=== PATIENT | male | born 1945 | race African-American/Black ===

== ENCOUNTER 2019-06-27 09:52 | Day surgery (SDC) | payer OTHER ==
[2019-06-27 10:46] VITALS: BMI 35.0
[2019-06-27] MEDS ORDERED: LIDOCAINE HCL/PF 2% SDV 5ML VIAL ONE (11:39)
[2019-06-27] MEDS ORDERED: MIDAZOLAM HCL 2 MG/2 ML SINGLE DOSE VIAL ONE (11:39)
[2019-06-27] MEDS ORDERED: ONDANSETRON 4 MG/2 ML VIAL ONE ×2 (11:39→13:47)
[2019-06-27] MEDS ORDERED: PROPOFOL 20 ML ONE (11:39)
[2019-06-27] MEDS ORDERED: DEXAMETHASONE SOD PHOSPHATE 4 MG/1 ML VIAL ONE (11:39)
[2019-06-27] MEDS ORDERED: ceFAZolin SODIUM 1 GM VIAL ONE (12:50)
--- NOTE | 2019-06-27 13:52 | OP ---
DATE OF OPERATION: DATE OF DICTATION: 06/27/2019 PREOPERATIVE DIAGNOSIS: Carpal tunnel syndrome on the right. POSTOPERATIVE DIAGNOSIS: Carpal tunnel syndrome on the right. SURGICAL PROCEDURE: Right carpal tunnel release. SURGEON: Nahun Costello MD ANESTHESIOLOGIST: Alberto Tian MD ANESTHESIA: General anesthesia provided. ANTIBIOTICS: 2 g Kefzol preoperative. DESCRIPTION OF PROCEDURE: Patient correctly identified. Brought to the operating room, placed supine. Right upper limb was prepped and draped in the routine manner with Betadine scrub solution, wiped off with alcohol, DuraPrep applied, a free drape applied. A time-out was called. On a bloodless field, the incision was made over the primary crease of the palm extending from a line just distal to the MPJ of the thumb, extending in the crease to the wrist. The subcutaneous tissue was dissected to the palmar fascia. The fascia was longitudinally split extending to the flexor retinaculum, which were transverse fibers. These were gently stroked with 15 blade until the entire flexor retinaculum was freed from the underlying deep structures. Distal ligament extending the incision into the distal 3-5 cm into the forearm to ensure that the entire sheath was freed. This was freed up into the palm. A finger was utilized to ensure that the freeing of the flexor retinaculum was complete, and we palpated carefully the axillary carpal tunnel, and no ganglions or abnormalities were found within the confines of the carpal tunnel. The median nerve itself was clearly visualized. This was white in color. Skin was closed skin and subcutaneous tissue all in 1 layer with 5-0 nylon interrupted vertical mattress sutures. A light pressure dressing applied. MD ESVIN Tidwell/[id number]
--- NOTE | 2019-06-27 14:03 | PN ---
Progress Note (short form) - Note Progress Note: 74M s/p right open carpal tunnel release POD #0. -Pain control. -Incentive spirometry. -NWB RUE. -Keep dressing clean & dry. -Percocet, Duexis ordered to pharmacy for analgesia; OK to use OTC NSAID's instead. -Elevate wrist/hand above level of heart. -Discharge home: f/u [facility] [place] [facility] 07/03/2019; call for appointment: . Nahun Costello MD (Orthopaedic Surgery).
--- NOTE | 2019-06-27 14:05 | OP ---
Operative Note - Note: Operative Date: 06/27/19 Pre-Operative Diagnosis: Right wrist/hand carpal tunnel syndrome Operation: Right open carpal tunnel release Post-Operative Diagnosis: Same as Pre-op Surgeon: Nahun Costello Anesthesiologist/PLAYGROUND OFFICIAL: Alberto Tian Anesthesia: General Estimated Blood Loss (mls): 0 Fluid Volume Replaced (mls): 400 Operative Report Dictated: Yes
[2019-06-27] MEDS ORDERED: ONDANSETRON 4 MG/2 ML VIAL IVPUSH PRN (14:35)
[2019-06-27] MEDS ORDERED: PROMETHAZINE HCL 25 MG/1 ML VIAL IVPB PRN (14:35)
[2019-06-27] MEDS ORDERED: oxyCODONE HCL 5 MG TABLET PO PRN ×2 (14:35)
[2019-06-27 15:46] VITALS: BP 121/65; PULSE 75; TEMP 98
[2019-06-27] MEDS ORDERED: PREGABALIN 100 MG CAPSULE PO SCH (22:00)
[2019-06-27] MEDS ORDERED: TOLTERODINE TARTRATE LA 4 MG CAP.SR.24H (FP) PO SCH (22:00)
[2019-06-27] MEDS ORDERED: PANTOPRAZOLE 20 MG TABLET (FP) PO SCH (22:00)
[2019-06-28] MEDS ORDERED: amLODIPine BESYLATE 10 MG TABLET (FP) PO SCH (10:00)
[2019-06-28] MEDS ORDERED: PREGABALIN 75 MG CAPSULE PO SCH (10:00)
== END 2019-06-27 15:40 | disposition home or self-care (01) ==
LOC: FASU 09:52
PROVIDERS: ATTEND Orthopaedic Surgery Orthopaedic Surgery of the Spine
PROC: 01N50ZZ Release Median Nerve, Open Approach (ICD-10-PCS; principal; 2019-06-27 13:03)
DX: G56.01 Carpal tunnel syndrome, right upper limb (principal)
CPT/HCPCS: 94760

== ENCOUNTER 2022-06-26 04:27 | Day surgery (SDC) | payer BC, OTHER ==
[2022-06-22 16:46] VITALS: BMI 33.1
[2022-06-26 06:31] VITALS: RESP 20
[2022-06-26] MEDS ORDERED: MIDAZOLAM HCL 2 MG/2 ML SINGLE DOSE VIAL ONE (08:02)
[2022-06-26] MEDS ORDERED: PROPOFOL 20 ML ONE ×2 (08:02→08:03)
[2022-06-26] MEDS ORDERED: BOTULINUM TOXIN A 100 UNITS VIAL IM ONE (08:19)
[2022-06-26] MEDS ORDERED: LIDOCAINE HCL 1%, 10 MG/ML (20ML VIAL) ONE (08:41)
[2022-06-26] MEDS ORDERED: LIDOCAINE HCL 1%, 10 MG/ML (20ML VIAL) NR ONE ×2 (08:51)
[2022-06-26 12:23] VITALS: TEMP 97.1
[2022-06-26 12:26] VITALS: BP 125/75; PULSE 70
== END 2022-06-26 10:31 | disposition home or self-care (01) ==
LOC: JASU-SURG 04:27
PROVIDERS: ATTEND Surgery
PROC: 3E023TZ Introduction of Destructive Agent into Muscle, Percutaneous Approach (ICD-10-PCS; principal; 2022-06-26 08:00)
DX: K43.9 Ventral hernia without obstruction or gangrene (principal)

== ENCOUNTER 2022-07-24 04:37 | Day surgery (SDC) | payer BC ==
[2022-07-18 16:35] VITALS: BMI 32.7
[2022-07-24] MEDS ORDERED: MIDAZOLAM HCL 2 MG/2 ML SINGLE DOSE VIAL ONE (08:06)
[2022-07-24] MEDS ORDERED: ROPIVACAINE HCL 0.5% 30ML VIAL ONE (08:07)
[2022-07-24] MEDS ORDERED: FENTANYL CITRATE/PF 50 MCG/ML VIAL ONE ×3 (08:33→13:48)
[2022-07-24] MEDS ORDERED: PROPOFOL 20 ML ONE (08:33)
[2022-07-24] MEDS ORDERED: ROCURONIUM BROMIDE 50 MG/5 ML SYRINGE ONE ×2 (08:37→10:47)
[2022-07-24] MEDS ORDERED: ceFAZolin SODIUM 1 GM VIAL IVPB ONE (08:45)
[2022-07-24] MEDS ORDERED: SUGAMMADEX SODIUM 200 MG/2 ML VIAL ONE (09:45)
[2022-07-24] MEDS ORDERED: NEOSTIGMINE METHYLSULFATE 0.5 MG/ML - 10 ML MDV ONE (11:55)
[2022-07-24] MEDS ORDERED: GLYCOPYRROLATE 0.2 MG/1 ML VIAL ONE (11:55)
[2022-07-24] MEDS ORDERED: HYDROmorphone HCl 2 MG/ML VIAL ONE (11:58)
[2022-07-24] MEDS ORDERED: BACITRACIN 15 GM TUBE TOPICAL OINTMENT ONE (12:00)
[2022-07-24] MEDS ORDERED: BACITRACIN 15 GM TUBE TOPICAL OINTMENT TP ONE (12:12)
[2022-07-24] MEDS ORDERED: ACETAMINOPHEN 1000 MG/100 ML BAG IVPB ONE ×2 (12:29→12:45)
[2022-07-24] MEDS ORDERED: LACTATED RINGERS SOLUTION 1,000 ML IV SCH (12:30)
[2022-07-24] MEDS ORDERED: PROMETHAZINE HCL 25 MG/1 ML VIAL IVPUSH PRN (12:30)
[2022-07-24] MEDS ORDERED: oxyCODONE HCL 5 MG TABLET PO PRN (12:30)
[2022-07-24] MEDS ORDERED: ONDANSETRON 4 MG/2 ML VIAL IVPUSH PRN (12:30)
[2022-07-24] MEDS ORDERED: ACETAMINOPHEN INJECTION 100 ML IVPB ONE (12:39)
[2022-07-24] MEDS ORDERED: oxyCODONE HCL 5 MG TABLET ONE (15:11)
[2022-07-24] MEDS ORDERED: ONDANSETRON 4 MG/2 ML VIAL ONE (15:11)
[2022-07-24] MEDS ORDERED: PATIENT'S OWN MEDICATION (NON-FORMULARY) (Acetaminophen [Tylenol] 325 MG Capsule) PO PRN (15:12)
[2022-07-24] MEDS ORDERED: oxyCODONE HCL 5 MG TABLET PO ONE (15:15)
[2022-07-24] MEDS ORDERED: ONDANSETRON 4 MG/2 ML VIAL IVPB ONE (15:15)
[2022-07-24] MEDS ORDERED: PATIENT'S OWN MEDICATION (NON-FORMULARY) (Oxycodone Hcl [Oxycodone Hcl] 10 MG Tablet) PO SCH (15:30)
[2022-07-24] MEDS: ACETAMINOPHEN 1000 MG/100 ML BAG IVPB SCH ×2 (18:38→21:26)
[2022-07-24] MEDS: metFORMIN HCL 500 MG TABLET (FP) PO SCH (18:43)
[2022-07-24] MEDS: GABAPENTIN 100 MG CAPSULE PO SCH (21:26)
[2022-07-24] MEDS: PANTOPRAZOLE 20 MG TABLET PO SCH (21:26)
[2022-07-24] MEDS: POLYETHYLENE GLYCOL (HEALTHYLAX) 3350 17 GM PACKET PO SCH (21:26)
[2022-07-25] MEDS: ACETAMINOPHEN 1000 MG/100 ML BAG IVPB SCH ×3 (03:30→10:13)
[2022-07-25 03:52] VITALS: RESP 18
[2022-07-25 06:44] VITALS: BP 141/78; PULSE 77; TEMP 97.9
[2022-07-25] MEDS: metFORMIN HCL 500 MG TABLET (FP) PO SCH (07:01)
[2022-07-25] MEDS ORDERED: CYANOCOBALAMIN 1,000 MCG TABLET (FP) PO SCH (10:00)
[2022-07-25] MEDS ORDERED: ASCORBIC ACID 500 MG TABLET (FP) PO SCH (10:00)
[2022-07-25] MEDS ORDERED: CALCIUM 500MG/VIT-D 200 UNITS COMBO TABLET (FP) PO SCH (10:00)
[2022-07-25] MEDS ORDERED: CYANOCOBALAMIN PO SCH (10:00)
[2022-07-25] MEDS ORDERED: amLODIPine BESYLATE 10 MG TABLET (FP) PO SCH (10:00)
[2022-07-25] MEDS ORDERED: TOLTERODINE TARTRATE LA 4 MG CAP.SR.24H (FP) PO SCH (10:00)
[2022-07-25] MEDS: POLYETHYLENE GLYCOL (HEALTHYLAX) 3350 17 GM PACKET PO SCH (10:12)
[2022-07-25] MEDS: PANTOPRAZOLE 20 MG TABLET PO SCH (10:13)
[2022-07-25] MEDS: GABAPENTIN 100 MG CAPSULE PO SCH (10:13)
== END 2022-07-25 14:48 | disposition home or self-care (01) ==
LOC: JASU-SURG 04:37 → J5S 16:46 → JASU-SURG 07-25 14:48
PROVIDERS: ATTEND Surgery
PROC: 0WUF0JZ Supplement Abdominal Wall with Synthetic Substitute, Open Approach (ICD-10-PCS; principal; 2022-07-24 08:00)
DX: K43.9 Ventral hernia without obstruction or gangrene (principal)
CPT/HCPCS: 82962; 88300-TC; 88302-TC; 88304-TC; 94760; C1781